=== PATIENT | female | born 1950 | race Caucasian/White ===

== ENCOUNTER → 2019-09-08 10:53 | Outpatient (REF) | payer MEDICARE, SELFPAY | LOC: ANHLAB 10:53 | PROVIDERS: Visit Provider Nurse Practitioner | DX: D49.2 Neoplasm of unspecified behavior of bone, soft tissue, and skin (principal); L57.0 Actinic keratosis | CPT/HCPCS: 88305; 88342 ==

== ENCOUNTER → 2019-09-29 14:06 | Outpatient (REF) | payer MEDICARE, SELFPAY | LOC: ANHLAB 14:06 | PROVIDERS: Visit Provider Nurse Practitioner | DX: D49.2 Neoplasm of unspecified behavior of bone, soft tissue, and skin (principal) | CPT/HCPCS: 88305 ==

== ENCOUNTER 2022-03-13 13:00 | Outpatient (NON) | payer MEDICARE, SELFPAY | END 2022-03-13 13:01 | disposition home or self-care (01) | PROVIDERS: Visit Provider Nurse Practitioner | DX: L57.0 Actinic keratosis (principal) | CPT/HCPCS: 88305; 88342 ==